=== PATIENT | female | born 1995 | race Hispanic/Latino ===

== ENCOUNTER 2023-03-24 07:29 | Inpatient (IN) | payer MEDICAID, SELFPAY ==
[2023-03-24] VITALS (220 sets, daily range): BP systolic 87–158; BP diastolic 37–88; PULSE 59–172; TEMP 36.3–37.3; O2SAT 96–100; BMI 34.5
--- NOTE | 2023-03-24 09:19 | LDADM ---
This patient, Flower Duarte, was admitted to Labor/Delivery/Recovery 104 on 03/24/23 at 07:29. Plans for labor, pain management and were discussed with patient. Patient/family oriented to hospital policies and general routines including ID bracelet, bed and alarms, visiting hours, pain management, procedures, bathroom and other care routines, personal items, smoking policy, room service/diet and guest tray routines, security routines, and visiting hours. Patient/Family are encouraged to report perceived risks to care and to ask questions if they do not understand what they are told or what they should do. See OBIX for further documentation.
[2023-03-24 09:41] LABS: Basophils Percent Auto 0.3 % (0.2-1.2); Eosinophils Percent Auto 0.3 % (0-4.4); Hematocrit 42.8 % (37.0-47.0); Hemoglobin 14.3 g/dL (12.0-15.0); Immature Granulocyte Absolute 0.11 K/mm3 (0.00-0.031); Immature Granulocyte Percent A 0.7 % (0-0.5); Lymphocytes Absolute Auto 1.56 K/mm3 (0.9-3.2); Lymphocytes Percent Auto 10.6 % (18.3-44.2); Mean Corpuscular HGB Conc 33.4 g/dl (32-36); Mean Corpuscular Hemoglobin 28.9 pg (26-34); Mean Corpuscular Volume 86.6 fl (80-100); Mean Platelet Volume 10.2 fl (7.4-10.4); Monocytes Absolute Auto 0.6 K/mm3 (0.1-0.6); Monocytes Percent Auto 3.7 % (2.6-8.5); Neutrophils Absolute Auto 12.4 K/mm3 (1.3-6.7); Neutrophils Percent Auto 84.4 % (45.5-73.1); Platelet Count Result 192 k/mm3 (150-375); Red Blood Count 4.94 M/mm3 (4.2-5.4); Red Cell Distribution Width 14.1 % (11.5-14.5); White Blood Count 14.7 K/mm3 (4.5-10.0)
[2023-03-24] MEDS: OXYTOCIN 30 UNITS/NS 500 ML 30 UNITS/500 ML BAG IV CONT (09:44)
[2023-03-24] MEDS: LACTATED RINGERS 1,000 ML 125 ML IV CONT ×5 (09:44→22:00)
--- NOTE | 2023-03-24 10:18 | P.PNAN_ITS ---
Anes - Eval Pre Procedure Procedure: Labor epidural Date/Time: 03/24/23 10:18 Surgeon: Golden Preop Diagnosis: Pain during labor Pre Op Diagnosis: Contractions Patient Data Age: 27 Gender: F Height: 1.55 m Weight: 83 kg Last Vital Signs Pulse 82 03/24/23 10:01 BP 110/71 03/24/23 10:01 Pulse Ox 99 03/24/23 10:17 O2 Del Method Room Air 03/24/23 09:17 Allergies Allergy/AdvReac Type Severity Reaction Status Date / Time No Known Allergies Allergy Verified 03/18/23 12:42 Laboratory Tests 03/24/23 09:04 WBC 14.7 H K/mm3 (4.5-10.0) RBC 4.94 M/mm3 (4.2-5.4) Hgb 14.3 g/dL (12.0-15.0) Hct 42.8 % (37.0-47.0) MCV 86.6 fl (80-100) MCH 28.9 pg (26-34) MCHC 33.4 g/dl (32-36) RDW 14.1 % (11.5-14.5) Plt Count 192 k/mm3 (150-375) MPV 10.2 fl (7.4-10.4) Immature Gran % (Auto) 0.7 H % (0-0.5) Neut % (Auto) 84.4 H % (45.5-73.1) Lymph % (Auto) 10.6 L % (18.3-44.2) Reagan % (Auto) 3.7 % (2.6-8.5) Eos % (Auto) 0.3 % (0-4.4) Baso % (Auto) 0.3 % (0.2-1.2) Lymph # (Auto) 1.56 K/mm3 (0.9-3.2) Reagan # (Auto) 0.6 K/mm3 (0.1-0.6) Eos # (Auto) 0.0 K/mm3 (0-0.3) Baso # (Auto) 0.0 K/mm3 (0.0-0.1) Abs Immat Gran (auto) 0.11 H K/mm3 (0.00-0.031) Absolute Neuts (auto) 12.4 H K/mm3 (1.3-6.7) Absolute Nucleated RBC 0.0 K/mm3 (0.0-0.012) Nucleated RBC % 0.0 % (0.0-0.2) RPR Pending HIV 1&2 Ab/P24 Ag 4thGn Pending Patient hx anesthesia problems: none Family hx anesthesia problems: none Results Review: All pre-operative results and documents have been reviewed as part of the pre- operative evaluation. [facility] Family History Family History Grandparent Diabetes mellitus Blindness and low vision Social History Social History Smoking status: Never smoker Substance use: never Lack of Transportation: No Lack of Food: Never True Current Housing: I Have Housing Concerned About Future Housing: No Difficulty Paying Gas/Electric Bills: No Difficulty Paying for Meds: No Currently Unemployed: No Education: Don't Know Difficulty w/ Childcare or Family Care: No Spiritual care concerns: No Exam Day of Procedure 03/24/23 10:18 Patient weight: normal Neurological: alert and oriented
[2023-03-24 10:33] LABS: HIV 1/2 Ab P24 Ag Result Negative (Negative)
--- NOTE | 2023-03-24 12:26 | WPDHPUPDATE1 ---
History and Physical Update Update Date/Time: 03/24/23 12:26 27-year-old primipara at term who presented in labor, 4 cm, 90%, -2 station. Artificial rupture of membranes was performed. Thin meconium. Reassuring status. History and Physical has been reviewed, including an updated exam of the patient. There are NO changes in the patient's condition. Risks, benefits, and alternatives have been discussed and questions answered. Patient agrees to proceed with procedure.
[2023-03-24] MEDS: ONDANSETRON INJ 4 MG/2 ML VIAL IV PUSH (21:30)
[2023-03-25] VITALS (46 sets, daily range): BP systolic 83–159; BP diastolic 47–136; PULSE 57–126; RESP 16–18; TEMP 36.3–36.9; O2SAT 95–100
--- NOTE | 2023-03-25 01:28 | PM.OBPRVD ---
OB - Delivery Note Procedure Delivery date: 03/25/23 Procedure: Delivery augmentation: Rupture of Membranes and Pitocin Delivery monitor: External FHT and External Uterine Route of delivery: Episiotomy description: None Laceration Description: Perineal - 2nd Degree and Other (1st degree left labial) Delivery repair: vicryl Specimen: No Quantitative Blood Loss (ml): 220 Anesthesia type: Epidural Disposition: Floor Baby Date of : 03/25/23 Time of : 01:02 Weeks of gestation at delivery: 38 Infant gender: Male score one minute: 9 score five minutes: 9
[2023-03-25] MEDS: OXYTOCIN 30 UNITS/NS 500 ML 30 UNITS/500 ML BAG 125 UNITS IV CONT (01:40)
[2023-03-25] MEDS: WITCH HAZEL 40 PADS 1 PAD TOPICAL (04:13)
[2023-03-25] MEDS: BENZOCAINE 20% AER SPR (*SP) 56 GM CAN 1 SPRAY TOPICAL (04:13)
--- NOTE | 2023-03-25 04:30 | PC.NURSE ---
Patient transferred to post room #288 per wheelchair from labor and delivery. Support person present. Oriented to unit, room, information board, rooming in, admission packet and security measures. Patient verbalizes understanding.
[2023-03-25] MEDS: MULTIVIT/MIN/PREN/FOL AC/IRON TABLET 1 TAB PO (08:20)
[2023-03-25] MEDS: DOCUSATE SODIUM 100 MG CAPSULE PO (08:20)
[2023-03-25] MEDS: IBUPROFEN 600 MG TABLET PO ×2 (08:21→21:31)
[2023-03-25] MEDS: LANOLIN (LANSINOH) 7.5 GM CREAM 1 APPLIC TOPICAL (08:23)
[2023-03-25 11:25] LABS: Rapid Plasma Reagin Non-Reactive (NonReactive)
[2023-03-25] MEDS: ACETAMINOPHEN 325 MG TABLET 650 MG PO (13:31)
--- NOTE | 2023-03-25 14:11 | WPDANLDPN2 ---
Anes-Prog Note L&D Date/Time: 03/25/23 14:11 Comfortable throughout: labor and delivery Neuraxial method: epidural Epidural/Spinal procedure site: clean & non-tender Neuro status: Neuro function grossly intact. Cardiovascular status: normal Respiratory status: normal Airway patency: baseline Mental status: baseline Post-Op hydration status: normal Vital Signs: Last Vital Signs Temp 36.6 C 03/25/23 12:13 Pulse 76 03/25/23 12:13 Resp 16 03/25/23 12:13 BP 100/47 L 03/25/23 12:13 Pulse Ox 97 03/25/23 12:13 O2 Del Method Room Air 03/25/23 13:00 Pain score (VAS): 3/10 I/O: Intake & Output 03/24/23 03/25/23 03/25/23 23:59 07:59 15:59 Intake Total 1999 500 480 Output Total 220 Balance 1999 280 480 Post-procedural complaints: none Patient feedback: Patient satisfied with anesthetic care.
--- NOTE | 2023-03-25 14:11 | PC.NURSE ---
[id number] Introductions were made, then consulted with patient to assess needs related to . Mother led the conversation with her?plans to feed?her infant, the?experience so far, and states she used a nipple shield once and sucked with that well. Nipple shield provided for initial breastfeed to mother due to no latch. Reviewed good handwashing, cleaning the nipple shield and application. Discussed with mom the nipple shield precautions, possible complications associated with the risks and benefits. Reviewed practicing with a nipple shield, then without and how to protect the milk supply and production. Mom voiced understanding of the importance of hand expression, nipple stimulation and initiating a pumping schedule if continues to nurse with the shield. Mother practiced hand expression with assistance and no colostrum was expressed. Reviewed options of practicing with the nipple shield, hand stimulation, hand expression, or pumping for a few minutes to pull nipple out. Parents were encouraged to stimulate using massage touch, position changes, diaper changes, burping and [id number] to assist with encouraging infants feeding cues. Resources provided for inpatient and outpatient services with the feeding sheet, mom/baby guide and name written on the white board. Mother voiced understanding of information and will call if there is a request for assistance. Reported to the primary RN. [phone] Parents called for assistance related to visualizing feeding cues that were reviewed earlier today. was attempted to the right breast using football positioning several times. Once infant latched, had a few effective sucks, infant demonstrated gagging. Parents were encouraged to practice [id number], eat their lunch that was just delivered. Infant is relaxed and not demonstrating feeding cues with hands somewhat relaxed and opened. Parents were encouraged to call for latch assistance if doesn't wake to feed, there's pain with the latch, or infant doesn't maintain. Reported to Primary RN.
[2023-03-26 00:48] VITALS: BP 103/57; PULSE 80; RESP 16; TEMP 36.6; O2SAT 98
[2023-03-26 05:11] LABS: Hematocrit 33.5 % (37.0-47.0); Hemoglobin 10.8 g/dL (12.0-15.0)
[2023-03-26 06:56] VITALS: BP 86/41; PULSE 72; RESP 14; TEMP 36.8; O2SAT 100
[2023-03-26] MEDS: IBUPROFEN 600 MG TABLET PO (06:58)
[2023-03-26] MEDS: DOCUSATE SODIUM 100 MG CAPSULE PO (07:48)
[2023-03-26] MEDS: MULTIVIT/MIN/PREN/FOL AC/IRON TABLET 1 TAB PO (07:48)
[2023-03-26] MEDS: WITCH HAZEL 40 PADS 1 PAD TOPICAL (13:00)
[2023-03-26] MEDS: DIBUCAINE 1% OINTMENT 30 GM TUBE 1 APPLIC TOPICAL (13:00)
--- NOTE | 2023-03-26 13:00 | PC.NURSE ---
Patient viewed the discharge video Mother & Baby Care, The First Two Weeks . Patient was given the opportunity and encouraged to ask questions. Patient verbalized understanding of information shared and has been given the mother/baby guide for home reference.
--- NOTE | 2023-03-26 16:08 | PM.GYNPNOP ---
MARKETING DEVELOPER - A/P Time Spent With Patient Time: Total time spent is greater than 50% in coordination of care (as documented) at patient's floor/unit and/or counseling patient: Time with patient: less than 15 minutes MARKETING DEVELOPER- PN:Moy Post-Op Subjective Date/time seen: 03/26/23 16:08 Exam Const: General: comfortable and no acute distress Resp: Effort & Inspection: normal respiratory effort Auscultation: no rales, no rhonchi and no wheezes Cardio: Rate: regular rate Heart sounds: no click, no murmurs and no rubs GI: GI Palp: Yes Soft to palpation and No Tenderness to palpation present (GI) Auscultation: normal bowel sounds Extrem: General: normal to inspection, no pedal edema and no calf tenderness MARKETING DEVELOPER - PN: Obj Data Vital Signs Vital Signs: Vital Signs - 24 hr 03/25/23 21:33 03/25/23 21:33 03/26/23 00:48 Temperature 97.9 F 97.9 F Pulse Rate 88 88 80 Respiratory Rate 16 16 16 Blood Pressure 116/72 103/57 L Pulse Oximetry 98 98 98 Oxygen Delivery Room Air 03/26/23 06:56 Temperature 98.3 F Pulse Rate 72 Respiratory Rate 14 Blood Pressure 86/41 L Pulse Oximetry 100 Oxygen Delivery Intake/Output Intake/Output: Intake & Output 03/23/23 03/24/23 03/25/23 03/26/23 23:59 23:59 23:59 23:59 Intake Total 4000 980 Output Total 220 Balance 4000 760 Meds/Results Medications: Active Medications Generic Name Dose Route Start Last Admin Trade Name Freq PRN Reason Stop Dose Admin Acetaminophen 650 mg 03/25/23 02:35 03/25/23 13:31 Acetaminophen 325 Mg Tablet PO 650 mg Q6H PRN Administration Mild Pain (1-3) or Headache Benzocaine 1 spray 03/25/23 02:35 03/25/23 04:13 Benzocaine 20% Aer Spr (*Sp) 56 Gm Can TOPICAL 1 spray PRN PRN Administration Perineal Discomfort Dibucaine 1 applic 03/25/23 02:35 Dibucaine 1% Ointment 30 Gm Tube TOPICAL PRN PRN Hemorrhoids Docusate Sodium 100 mg 03/25/23 02:35 03/26/23 07:48 Docusate Sodium 100 Mg Capsule PO 100 mg BID PRN Administration Constipation Emollient Ointment 1 applic 03/25/23 02:35 03/25/23 08:23 Lanolin (Lansinoh) 7.5 Gm Cream TOPICAL 1 applic PRN PRN Administration Sore Nipples Ibuprofen 600 mg 03/25/23 02:35 03/26/23 06:58 Ibuprofen 600 Mg Tablet PO 600 mg Q6H PRN Administration Cramping Ondansetron HCl 4 mg 03/25/23 02:35 Ondansetron Inj 4 Mg/2 Ml Vial IV PUSH Q6H PRN Nausea Polysaccharide Iron Complex 150 mg 03/25/23 08:00 03/25/23 18:55 Polysaccharide Iron Complex 150 Mg Capsule PO Not Given BIDWM JACLYN Vit/Calcium/Iron/Folic Ac 1 tab 03/25/23 09:00 03/26/23 07:48 Multivit/Min/Pren/Fol Ac/Iron Tablet PO 1 tab DAILY JACLYN Administration Simethicone 80 mg 03/25/23 02:35 Simethicone 80 Mg Tab.Chew PO Q2H PRN Gas Witch Nyla 1 pad 03/25/23 02:35 03/25/23 04:13 Witch Nyla 40 Pads TOPICAL 1 pad PRN PRN Administration Perineal Discomfort Zolpidem Tartrate 5 mg 03/25/23 02:35 Zolpidem Tartrate (*Crx) 5 Mg Tablet PO HS PRN Insomnia Labs 03/26/23 04:07 Labs: Laboratory Results - last 24 hr 03/26/23 04:07 Hgb 10.8 L D Hct 33.5 L
--- NOTE | 2023-03-26 16:09 | P.DS_ITS ---
DS: Admitting Diagnosis Discharge Date 03/26/23 Admitting Diagnosis term OB - DS: Summary OB Procedures : None OB Procedures Intrapartum: Spontaneous Vag Delivery OB Procedures: : None Time Spent with Patient Time attestation: Total time spent providing and/or coordinating discharge services: DS: Data Data Completed and Pending Labs on day of discharge: Labs from last 24 hours 03/26/23 04:07 Hgb 10.8 L D Hct 33.5 L Discharge Plan Discharge Attending physician on discharge: Sharonda Espinoza Discharging Clinician: Sharonda Espinoza Patient Disposition: Home, Self-Care Activity: pelvic rest Diet: regular Patient Instructions: Antibiotic Form Stand Alone Forms: General Discharge Information Follow-up/Referrals: Sharonda Espinoza MD [Physician] - Date of admission: 03/24/23 07:29 Primary Care Provider: PHYSICIAN,WAREHOUSE DISTRIBUTION ASSOCIATE Admitting Provider: Janet Franks Attending physician on admission: Janet Franks Condition: Stable
[2023-03-28 11:31] VITALS: BP 109/64; PULSE 91; RESP 18; TEMP 37.1; O2SAT 98
== END 2023-03-26 17:01 | disposition home or self-care (01) | DRG 807 ==
LOC: ANHLDR 09:01 → ANHOB2 03-25 04:34
PROVIDERS: Admitting Provider Obstetrics & Gynecology; Visit Provider Obstetrics & Gynecology
DX: O77.0 Labor and delivery complicated by meconium in amniotic fluid (principal); Z37.0 Single live birth; O70.1 Second degree perineal laceration during delivery; O69.81X0 Labor and delivery complicated by cord around neck, without compression, not applicable or unspecified; Z3A.38 38 weeks gestation of pregnancy
CPT/HCPCS: 36415; 85014; 85018; 85025; 86592; 86703; 86850; 86900; 86901; A9270; G0432; J2405; J2590; J2795; J7120